=== PATIENT | male | born 1950 | race Caucasian/White ===

== ENCOUNTER 2023-02-03 07:09 | Day surgery (SDC) | payer MEDICARE ==
--- NOTE | 2023-02-01 07:08 | P.GSHP ---
History of Present Illness H&P Date: 02/01/23 Chief Complaint: Nocturia, urinary incontinence The patient is a 73-year-old white male with lower urinary tract symptoms. He is taken tamsulosin for over 2 years, and began taking finasteride earlier this year. However, he has experienced persistent voiding symptoms and continues to empty his bladder incompletely. Specifically, he reports a diminished urinary stream, nocturia, and mixed urinary incontinence requiring the use of one brief daily. Cystoscopy shows a partially obstructing prostate with a bilobar configuration. He was offered the options of continued medical therapy, transurethral resection of prostate (TURP), or a less invasive procedure such as Urolift. He has chosen to undergo the latter. - Cardiovascular Cardiovascular: Reports high blood pressure - Genitourinary (Male) Genitourinary: Reports as per HPI Past Medical History Past Medical History: Chest Pain / Angina, Hyperlipidemia, Hypertension, Osteoarthritis (OA), Prostate Disorder History of Any Multi-Drug Resistant Organisms: None Reported Past Surgical History: Coronary Bypass/CABG Additional Past Surgical History / Comment(s): carotid lft, Past Anesthesia/Blood Transfusion Reactions: No Reported Reaction Smoking Status: Never smoker Medications and Allergies Home Medications Medication Instructions Recorded Confirmed Type Aspirin [Adult Low Dose Aspirin EC] 81 mg PO DAILY 01/27/23 01/27/23 History Atorvastatin Calcium 20 mg PO DAILY 01/27/23 01/27/23 History Fishoil (Unk) 1 tab PO DAILY 01/27/23 01/27/23 History Furosemide [Lasix] 40 mg PO DAILY 01/27/23 01/27/23 History Glucosamine/Chondr Hardy A Sod [Osteo 1 each PO BID 01/27/23 01/27/23 History Bi-Flex Caplet] Metoprolol Tartrate [Lopressor] 25 mg PO 1700 01/27/23 01/27/23 History Metoprolol Tartrate [Lopressor] 50 mg PO DAILY 01/27/23 01/27/23 History Multivitamins, Thera [Multivitamin 1 tab PO HS 01/27/23 01/27/23 History (formulary)] Potassium Chloride [Klor-Con M10] 10 meq PO DAILY 01/27/23 01/27/23 History Tamsulosin HCl [Flomax] 0.4 mg PO HS 01/27/23 01/27/23 History amLODIPine BESYLATE 2.5 mg PO 1200,2100 01/27/23 01/27/23 History clonazePAM [Clonazepam] 1 mg PO HS 01/27/23 01/27/23 History lisinopriL [Zestril] 20 mg PO BID 01/27/23 01/27/23 History Allergies Allergy/AdvReac Type Severity Reaction Status Date / Time No Known Allergies Allergy Verified 01/27/23 13:03 Surgical - Exam - General well developed, well nourished, no distress - Respiratory normal respiratory effort - Abdomen Abdomen: soft, non tender, no guarding, no rigid, no rebound - Genitourinary normal penis with no external lesions, testicles non-tender - Rectum Rectum: normal sphincter tone, no masses, other (Prostate moderately enlarged and smooth) - Psychiatric oriented to time, oriented to person, oriented to place, speech is normal, memory intact Assessment and Plan (1) Benign prostatic hyperplasia with lower urinary tract symptoms Status: Acute Code(s): N40.1 - BENIGN PROSTATIC HYPERPLASIA WITH LOWER URINARY TRACT SYMP SNOMED Code(s): 445273919 Plan: Cystoscopy with Urolift implants. The procedure has been reviewed in detail with the patient. He has been made aware of potential risks, which include anesthesia, bleeding, infection, postoperative irritative voiding symptoms, and persistent lower urinary tract symptoms with incomplete bladder emptying.
[2023-02-03] MEDS ORDERED: DEXAMETHASONE SOD PHOSPHATE 4 MG/ML 1 ML VIAL IV ONE (07:44)
[2023-02-03] MEDS ORDERED: HYDROmorphone 0.5 MG/0.5 ML SYRINGE IVP PRN (07:44)
[2023-02-03] MEDS ORDERED: LACTATED RINGERS 1,000 ML IV SCH (07:44)
[2023-02-03] MEDS ORDERED: ONDANSETRON 4 MG/2 ML VIAL IVP ONE (07:44)
[2023-02-03] MEDS ORDERED: LIDOCAINE 1% (10MG/ML) FOR IV START INTRADERMA PRN (07:44)
[2023-02-03] MEDS ORDERED: PROPOFOL 10 MG/ML 20 ML VIAL IV ONE (09:35)
[2023-02-03] MEDS ORDERED: PHENYLEPHRINE-0.9% NACL SYG 1,000 MCG/10 ML SYRINGE ONE (09:35)
[2023-02-03] MEDS ORDERED: KETOROLAC 15 MG/ML 1 ML VIAL ONE (09:35)
[2023-02-03] MEDS ORDERED: fentaNYL (PF) 50 MCG/ML 2 ML AMP ONE (09:35)
[2023-02-03] MEDS ORDERED: LIDOCAINE 1% INJ 10MG/ML (20 ML MDV) ONE (09:35)
--- NOTE | 2023-02-03 10:12 | P.OP ---
Date of Procedure: 02/03/23 Preoperative Diagnosis: BPH with Obstruction Postoperative Diagnosis: Same Procedure(s) Performed: Cystoscopy with Urolift implants Anesthesia: DAYSI Surgeon: Bar Alexandre Estimated Blood Loss (ml): 10 IV fluids (ml): 400 Pathology: none sent Condition: stable Disposition: PACU Indications for Procedure: The patient is a 73-year-old white male with lower urinary tract symptoms. He is taken tamsulosin for over 2 years, and began taking finasteride earlier this year. However, he has experienced persistent voiding symptoms and continues to empty his bladder incompletely. Specifically, he reports a diminished urinary stream, nocturia, and mixed urinary incontinence requiring the use of one brief daily. Cystoscopy shows a partially obstructing prostate with a bilobar configuration. He was offered the options of continued medical therapy, transu rethral resection of prostate (TURP), or a less invasive procedure such as Urolift. He has chosen to undergo the latter. Operative Findings: Anterior channel created within the prostatic urethra. Description of Procedure: The patient was taken in the operating room and placed in the dorsolithotomy position. The external genitalia was prepped and draped sterilely. The 30 lens was used to introduce the Stortz cystoscopic sheath through the urethra and into the bladder under direct vision. The anterior urethra appeared normal. The prostatic urethra showed evidence of partial obstruction with a bilobar configuration. A high median bar was also noted. Both ureteral orifice his were of normal anatomic location and configuration. No tumors or foreign bodies were seen. The bladder was not trabeculated. Urolift implants were placed 1.5 cm distal to the vesical neck at the 10:00 and 2:00 positions. 2 additional Urolift implants were placed at the same level posterolaterally, as the prostatic urethra was short. At this time, the only remaining obstruction was anterior, and therefore a fifth implant was placed anterolaterally on the right side, resulting in an open anterior channel. Hemostasis was adequate. The bladder was emptied and the cystoscope removed. The patient tolerated the procedure well was taken to the recovery room in stable condition.
[2023-02-03 10:18] VITALS: TEMP 97.1
[2023-02-03 10:42] VITALS: RESP 16
[2023-02-03 11:57] VITALS: BP 150/85; PULSE 89
[2023-02-03 18:29] LABS: African American GFR (CKD) >90 (>60 ml/min/1.73 sqM); Anion Gap 12 mmol/L; Blood Urea Nitrogen 7 mg/dL (9-20); Calcium 9.5 mg/dL (8.4-10.2); Carbon Dioxide 23 mmol/L (22-30); Chloride 98 mmol/L (98-107); Glucose 121 mg/dL (74-99); Non-African American GFR(CKD) >90 (>60 ml/min/1.73 sqM); Sodium 133 mmol/L (137-145)
== END 2023-02-03 11:54 | disposition home or self-care (01) ==
LOC: OR 07:09
PROVIDERS: ATTEND Urology
DX: N40.1 Benign prostatic hyperplasia with lower urinary tract symptoms (principal); N13.8 Other obstructive and reflux uropathy; N39.46 Mixed incontinence; I10 Essential (primary) hypertension; E78.5 Hyperlipidemia, unspecified; M19.90 Unspecified osteoarthritis, unspecified site; Z95.1 Presence of aortocoronary bypass graft; Z79.82 Long term (current) use of aspirin; Z79.899 Other long term (current) drug therapy
CPT/HCPCS: 80048; 84132; 52441; L8699; J1100; J0690; J2405; J2001; J3010; J1885; J2704; J2371